=== PATIENT | male | born 2000 | race African-American/Black ===

== ENCOUNTER 2023-12-25 10:37 | Emergency (ER) | payer OTHER ==
[2023-12-25 10:47] VITALS: BP 153/65; PULSE 65; RESP 18; TEMP 98; BMI 22.1
[2023-12-25 11:47] LABS: BASO % 0.2 % (0-2.0); HEMATOCRIT 48.5 % (35.4-49); LYMPH % 13.2 % (8-40); MCH 25.7 pg (25.7-33.7); MEAN CELL VOLUME 78.1 fl (80-96); MEAN PLT VOLUME 7.8 fl (7.5-11.1); MONO % 12.5 % (3.8-10.2); NEUT % 74.1 % (42.8-82.8); PLATELET COUNT 326 10^3/uL (134-434); RBC 6.21 M/mm3 (4.00-5.60); RDW 15.3 % (11.9-15.9); WHITE BLOOD COUNT 10.4 K/mm3 (4.0-10.0)
[2023-12-25] MEDS ORDERED: FAMOTIDINE 10 MG/ML VIAL IVPB ONE ×2 (11:48→11:49)
[2023-12-25] MEDS ORDERED: ONDANSETRON 4 MG/2 ML VIAL ONE (11:48)
[2023-12-25] MEDS: FAMOTIDINE 20 MG/50 ML IVPB 20 MG/50 ML MG IVPB ONE (12:03)
[2023-12-25] MEDS: SODIUM CHLORIDE 0.9% 500 ML INFUS.BAG IV ONE (12:03)
[2023-12-25] MEDS: ONDANSETRON 4 MG/2 ML VIAL IVPUSH ONE (12:04)
[2023-12-25 12:11] LABS: POTASSIUM 4.6 mmol/L (3.5-5.1)
[2023-12-25 12:14] LABS: ALBUMIN 4.7 g/dl (3.4-5.0); BLOOD UREA NITROGEN 25.3 mg/dL (7-18); CALCIUM 10.8 mg/dL (8.5-10.1)
[2023-12-25 12:17] LABS: CREATININE 1.4 mg/dL (0.55-1.3)
[2023-12-25 12:18] LABS: BILIRUBIN,TOTAL 0.5 mg/dL (0.2-1)
[2023-12-25 13:07] LABS: THROAT:GRP A STREP NOT DETECTED (NOTDETECTED)
[2023-12-25] MEDS ORDERED: ACETAMINOPHEN INJECTION 100 ML IVPB ONE (13:08)
[2023-12-25] MEDS ORDERED: LIDOCAINE VISCOUS 2% ORAL/TOP 15 ML UNIT-DOSE CUP ONE (13:08)
[2023-12-25] MEDS ORDERED: MAG HYDROX/AL HYDROX/SIMETH 30 ML UNIT-DOSE CUP ONE (13:08)
[2023-12-25] MEDS: ACETAMINOPHEN 1000 MG/100 ML BAG IVPB ONE (13:10)
[2023-12-25] MEDS: MAG HYDROX/AL HYDROX/SIMETH 30 ML UNIT-DOSE CUP PO ONE (13:10)
[2023-12-25] MEDS: LIDOCAINE VISCOUS 2% ORAL/TOP 15 ML UNIT-DOSE CUP MM ONE (13:10)
== END 2023-12-25 16:09 | disposition home or self-care (01) ==
LOC: JER 10:37
PROC: 3E033GC Introduction of Other Therapeutic Substance into Peripheral Vein, Percutaneous Approach (ICD-10-PCS; principal; 2023-12-25)
PROC: 3E033NZ Introduction of Analgesics, Hypnotics, Sedatives into Peripheral Vein, Percutaneous Approach (ICD-10-PCS; 2023-12-25)
PROC: 3E033GC Introduction of Other Therapeutic Substance into Peripheral Vein, Percutaneous Approach (ICD-10-PCS; 2023-12-25)
DX: K52.9 Noninfective gastroenteritis and colitis, unspecified (principal); R07.9 Chest pain, unspecified; R11.2 Nausea with vomiting, unspecified; R10.10 Upper abdominal pain, unspecified; Z20.822 Contact with and (suspected) exposure to COVID-19
CPT/HCPCS: 0241U-QW; 36415; 71046-TC-FY; 80053; 83690; 84484; 85025; 87651; 93005; 93010; 99285-25; J0131

== ENCOUNTER 2024-02-20 11:50 | Emergency (ER) | payer OTHER ==
[2024-02-20 11:57] VITALS: BP 127/83; PULSE 55; RESP 18; TEMP 97.7; BMI 23.6
[2024-02-20] MEDS ORDERED: METOCLOPRAMIDE HCL INJECTION 10 MG/2 ML VIAL ONE (12:19)
[2024-02-20] MEDS ORDERED: KETOROLAC TROMETHAMINE 15 MG/ML VIAL ONE (12:19)
[2024-02-20] MEDS: KETOROLAC TROMETHAMINE 15 MG/ML VIAL IVPUSH ONE (12:31)
[2024-02-20] MEDS: METOCLOPRAMIDE HCL INJECTION 10 MG/2 ML VIAL IVPUSH ONE (12:31)
[2024-02-20] MEDS: SODIUM CHLORIDE 1,000 ML IV STA (12:31)
[2024-02-20 12:41] LABS: BASO % 0.5 % (0-2.0); EOS % 1.1 % (0-4.5); HEMATOCRIT 38.6 % (35.4-49); HEMOGLOBIN 12.5 GM/dL (11.7-16.9); LYMPH % 28.8 % (8-40); MCH 25.8 pg (25.7-33.7); MCHC 32.5 g/dl (32.0-35.9); MEAN CELL VOLUME 79.3 fl (80-96); MEAN PLT VOLUME 7.1 fl (7.5-11.1); MONO % 7.8 % (3.8-10.2); NEUT % 61.8 % (42.8-82.8); PLATELET COUNT 298 10^3/uL (134-434); RBC 4.86 M/mm3 (4.00-5.60); RDW 14.6 % (11.9-15.9); WHITE BLOOD COUNT 4.9 K/mm3 (4.0-10.0)
[2024-02-20 13:00] LABS: POTASSIUM 4.3 mmol/L (3.5-5.1)
[2024-02-20 13:03] LABS: CALCIUM 9.4 mg/dL (8.5-10.1)
[2024-02-20 13:05] LABS: ALBUMIN 4.3 g/dl (3.4-5.0); BLOOD UREA NITROGEN 12.6 mg/dL (7-18)
[2024-02-20 13:07] LABS: CREATININE 1.2 mg/dL (0.55-1.3)
[2024-02-20 13:09] LABS: BILIRUBIN,TOTAL 0.3 mg/dL (0.2-1); TOT PROT 7.3 g/dl (6.4-8.2)
== END 2024-02-20 13:43 | disposition home or self-care (01) ==
LOC: JER 11:50
PROC: 3E033GC Introduction of Other Therapeutic Substance into Peripheral Vein, Percutaneous Approach (ICD-10-PCS; principal; 2024-02-20)
PROC: 3E0333Z Introduction of Anti-inflammatory into Peripheral Vein, Percutaneous Approach (ICD-10-PCS; 2024-02-20)
PROC: 3E033GC Introduction of Other Therapeutic Substance into Peripheral Vein, Percutaneous Approach (ICD-10-PCS; 2024-02-20)
PROC: 3E0337Z Introduction of Electrolytic and Water Balance Substance into Peripheral Vein, Percutaneous Approach (ICD-10-PCS; 2024-02-20)
DX: R51.9 Headache, unspecified (principal)
CPT/HCPCS: 36415; 70450-TC; 80053; 85025; 99284-25